=== PATIENT | male | born 1985 | race Caucasian/White ===

== ENCOUNTER 2019-01-27 10:03 | Emergency (ER) | payer OTHER, SELFPAY ==
--- NOTE | 2019-01-27 10:05 | NUR.NOTE ---
pt has been bees suffering from intermittent back pain since he was 16 pt noticed a slight back pain at home at approximately 0700 and by 0900 pt developed 10/10 back pain with moment and 4/10 at rest pain is focused on left lower back
[2019-01-27 10:08] VITALS: BP 131/113; PULSE 115; RESP 17; TEMP 37.1; O2SAT 96
--- NOTE | 2019-01-27 10:16 | NUR.NOTE ---
pt given incentive spectrometer and clear instructions
--- NOTE | 2019-01-27 10:33 | ED.GENADUL_ITS ---
Discharge Plan Disposition Patient Disposition: HOME Condition: Improving Discharge Details Chief Complaint: Nk/Back Pain Clinical Impression: Acute lumbar myofascial strain Primary Care Provider: Gage Hooker ED Provider: Navjot Ford Home Meds and New Rx's Prescriptions: New cyclobenzaprine 10 mg tablet 10 mg PO TID PRN (Reason: muscle spasm) Qty: 20 RF: 0 prednisone 20 mg tablet 40 mg PO DAILY Qty: 8 RF: 0 diclofenac potassium 50 mg tablet 50 mg PO TID PRN (Reason: pain) Qty: 14 RF: 0 Continued albuterol sulfate [Proventil HFA] 90 mcg/actuation HFA aerosol inhaler 2 puff IH Q6H PRN (Reason: shortness of breath or wheezing) Qty: 6.7 RF: 0 cetirizine [Zyrtec] 10 MG tablet 1 tab PO PRN RF: 0 Discharge Instructions Instructions: Low Back Strain (ED), Back Pain (ED) Additional Instructions: Please take medication as prescribed and continue to perform back stretches. Please call physical therapy and arrange follow-up appointment. Return to the emergency department for any significant worsening of symptoms, further concerns, changes in bowel or bladder function or severe lower extremely weakness or neurological deficits. Otherwise if not improving over next couple weeks follow-up with your primary care provider for reassessment Stand Alone Forms: Physical Therapy Referral Referrals: Gage Hooker [Primary Care Provider] - (If not improving over the next couple weeks please follow-up with your primary care provider for reassessment) Discharge Data Discharge Date/Time-TO BE ENTERED AT DEPARTURE: 01/27/19 13:20 Medical Decision Making Patient presenting to the emergency department for chief complaint of back pain. Patient states that 16 years ago he had a hockey injury which has occasionally flared up causing significant back discomfort. Patient reports yesterday evening he was playing with his 3-year-old whom he has been carrying around and playing with a lot and when he went to jump he felt his back start to give out. Over the course of the evening she was able to control the symptoms with bareback and body but then this morning while at work he started having severe back spasms. Patient does state some radiation of the discomfort into his left leg which is not present at this time but with any sort of movement he has severe spasms of his back. Physical exam is limited by patient's discomfort and him wanting to be in a kneeling position on the floor but patient has no spinal tenderness, normal lower extremity reflexes sensation and movement, straight leg positive on both sides. Plan to perform radiological imaging of the back given that patient stated compressed disc injury from hockey on previous imaging along with giving ketorolac and cyclobenzaprine. Patient reports that he would prefer to stay away from any addictive substances which I feel is appropriate. Patient denies any change in bowel or bladder function, fever or chills, due to this I doubt cauda equina, epidural abscess or other emergent back injury but mostly suspect lumbar strain with some radiculopathy. Review of radiological imaging and speaking with radiologist shows no acute findings on plain film imaging. Patient reassessed and does state improvement of symptoms but not full resolution. Patient was prescribed Flexeril, diclofenac, and placed on prednisone burst. Return precautions were discussed, patient informed to follow-up with physical therapy as I feel that this will help with his ongoing back discomfort, and patient to follow-up with primary c are provider as needed for reassessment. After discussion of diagnosis and plan of care patient has no further needs, questions, or concerns and states clear understanding to return to the emergency department for any worsening symptoms. HPI General Mode of arrival: EMS . Date/Time Provider Initiated Documentation: 01/27/19 10:06 . Limitations to Documentation: no limitations . Information obtained by: patient and RN notes reviewed . History of Present Illness 33 year old M presents to the emergency department with the chief complaint of back pain, described as severe and similar to prior episodes, with intensity rated at 10. Quality is described as sharp, and is localized to the back. Patient extremity. Patient started experiencing this hour(s) (16) and it has been constant and intermittent. No relieving factors improve symptom(s), Movement worsens symptoms . Patient notes no other symptoms.. Patient did receive the following treatments prior to arrival, NSAID Related Data Home Medications Medication Instructions Recorded Confirmed cetirizine [Zyrtec] 1 tab PO PRN 11/01/13 01/27/19 albuterol sulfate HFA 90 2 puff IH Q6H PRN #6.7 gm 12/07/18 01/27/19 mcg/actuation aerosol inhaler cyclobenzaprine 10 mg PO TID PRN #20 tab 01/27/19 diclofenac potassium 50 mg PO TID PRN #14 tab 01/27/19 prednisone 40 mg PO DAILY #8 tab 01/27/19 Previous Rx's Medication Instructions Recorded albuterol sulfate HFA 90 2 puff IH Q6H PRN #6.7 gm 12/07/18 mcg/actuation aerosol inhaler cyclobenzaprine 10 mg PO TID PRN #20 tab 01/27/19 diclofenac potassium 50 mg PO TID PRN #14 tab 01/27/19 prednisone 40 mg PO DAILY #8 tab 01/27/19 Allergies Allergy/AdvReac Type Severity Reaction Status Date / Time lidocaine Allergy Severe passed out Unverified 01/27/19 10:11 amoxicillin Allergy Intermediate Hives Unverified 01/27/19 10:11 General Stated Complaint: Nk/Back Pain BRIAN: 4 Review of Systems Constitutional Denies chills and Denies fever(s) Cardiovascular Denies chest pain and Denies dyspnea on exertion Respiratory Denies cough and Denies dyspnea on exertion Gastrointestinal Denies abdominal pain, Denies change in bowel habits, Denies diarrhea, Denies n ausea and Denies vomiting Genitourinary Denies difficulty urinating and Denies urinary incontinence Musculoskeletal Reports as per HPI and Reports back pain Neurologic Denies sensory deficit PFSH Social History Smoking/Tobacco Use Status: Never Drug use: Never Do you feel safe in your relationship?: Yes Exam Const General: cooperative and no acute distress Orientation: alert, awake and oriented x3 Neck Neck: normal visual inspection, full ROM and no meningeal signs Resp Effort & Inspection: normal respiratory effort Auscultation: clear to auscultation bilaterally Cardio Rate: regular rate Rhythm: regular rhythm Heart Sounds: S1 normal and S2 normal GI Palpation: no hepatosplenomegaly, no aortic enlargement, no masses and no pulsatile masses Back/Spine/Pelvis Cervical Spine: normal cervical lordosis Thoracic/Lumbar Spine: pain with thoraco-lumbar ROM, paraspinal tenderness (Diffuse lumbar), thoraco-lumbar ROM limited, thoraco-lumbar spasm, No thoracic spinal tenderness, No lumbar spinal tenderness and straight leg raise positive Pelvis: no pain with anterior-posterior compression, no pain with lateral compression, buttock tenderness bilaterally and sciatic notch tenderness on the right Neuro General: alert, awake and oriented x3 DTR's: Rt Patellar: 2+, Lt Patellar: 2+, Rt Ankle: 2+ and Lt Ankle: 2+ Extrem General: normal to inspection Course Vital Signs Temperature 37.1 C 01/27/19 10:08 Pulse 115 H 01/27/19 10:08 Respiratory Rate 17 01/27/19 10:08 Blood Pressure 131/113 H 01/27/19 10:08 Pulse Oximetry 96 01/27/19 10:08 Temperature 37.1 C 01/27/19 10:08 Temperature Source Skin 01/27/19 10:08 Pulse 115 H 01/27/19 10:08 Respiratory Rate 17 01/27/19 10:08 Respiratory Effort 01/27/19 10:12 Blood Pressure 131/113 H 01/27/19 10:08 Blood Pressure Position Sitting 01/27/19 10:08 Pulse Oximetry 96 01/27/19 10:08 Oxygen Delivery Method Room Air 01/27/19 10:08 Oxygen Flow Rate 0 01/27/19 10:08 Pain Level 10 01/27/19 10:08
[2019-01-27] MEDS: Ketorolac 60 MG/2 ML VIAL IM (11:00)
[2019-01-27] MEDS: Cyclobenzaprine 10 MG TAB PO (11:00)
--- NOTE | 2019-01-27 12:19 | DI.RAD_ITS ---
SYMPTOMS/DIAGNOSIS: BACK PAIN LUMBAR SPINE: AP, lateral and bilateral oblique views. There is normal alignment. No spondylolysis or spondylolisthesis. No acute fractures or subluxations are seen. The disc spaces are well maintained. The bones appear normally mineralized. IMPRESSION: Negative examination.
[2019-01-27 13:22] VITALS: BP 130/98; PULSE 98; RESP 17; TEMP 37.1; O2SAT 96
== END 2019-01-27 13:20 | disposition home or self-care (01) ==
PROVIDERS: Emergency Provider Nurse Practitioner Family; PCP Family Medicine
DX: S39.012A Strain of muscle, fascia and tendon of lower back, initial encounter (principal); X50.3XXA Overexertion from repetitive movements, initial encounter
CPT/HCPCS: 96372; 99284; 72110; J1885

== ENCOUNTER 2021-03-06 07:43 | Outpatient (CLI) | payer OTHER, SELFPAY ==
[2021-03-07 01:54] LABS: COVID-19 RT-PCR UVMMC Result Negative (Negative)
== END 2021-03-06 07:44 | disposition home or self-care (01) ==
PROVIDERS: PCP Family Medicine; Visit Provider Nurse Practitioner Family
DX: Z20.822 Contact with and (suspected) exposure to COVID-19 (principal)
CPT/HCPCS: U0003

== ENCOUNTER 2021-06-30 09:43 | Outpatient (CLI) | payer OTHER, SELFPAY ==
[2021-06-30 12:56] LABS: Source Nasal/Nares
[2021-07-01 08:58] LABS: COVID-19 PCR Negative (Negative)
== END 2021-06-30 09:44 | disposition home or self-care (01) ==
LOC: LBO 09:44
PROVIDERS: PCP Family Medicine; Visit Provider Family Medicine
DX: Z20.822 Contact with and (suspected) exposure to COVID-19 (principal)
CPT/HCPCS: 87635